=== PATIENT | female | born 1955 | race Caucasian/White ===

== ENCOUNTER 2019-09-06 14:11 | Emergency (ER) | payer SELFPAY ==
[2019-09-06 14:31] VITALS: BP 171/96; PULSE 68; RESP 16; TEMP 37; O2SAT 97
--- NOTE | 2019-09-06 15:01 | ED_ITS ---
HPI - Dental/Oral <JOVANNI Balbuena - Last Filed: 09/06/19 15:50> General Chief complaint: Dental/Oral Stated complaint: severe left jaw pain x4 days Time Seen by Provider: 09/06/19 14:41 Source: patient Mode of arrival: Ambulatory Limitations: no limitations History of Present Illness HPI Narrative: The patient is a 64-year-old female nonsmoker with history of hypertension who presents with a chief complaint of ?my teeth are rotted out of my mouth.She states that she does not have a primary care provider or dentist she states that she started having teeth issues multiple years ago, though she started having increased pain over the past week and the left side of her jaw. She denies any any fevers abnormal nausea vomiting or abnormal diarrhea. She states that she has taken Tylenol for the pain, and has not had anything else for the pain. She has not applied ice as she does not have ?access to ice packs. She has not taken any NSAIDs due to a history of gastric bypass surgery Related Data Home Medications Medication Instructions Recorded Confirmed lisinopril 20 mg PO 09/06/19 Previous Rx's Medication Instructions Recorded penicillin V potassium 500 mg PO QID #40 tab 09/06/19 tramadol 50 mg PO Q4H PRN #14 tab 09/06/19 Allergies Allergy/AdvReac Type Severity Reaction Status Date / Time No Known Drug Allergies Allergy Verified 09/06/19 14:36 Review of Systems <JOVANIN Balbuena - Last Filed: 09/06/19 15:50> Review of Systems Narrative: GENERAL: Denies chills, fatigue, malaise, fever, sweats. HEENT: See HPI RESPIRATORY: Denies dyspnea, cough, wheezing, hemoptysis, sputum. CARDIOVASCULAR: Denies chest pain, palpitations, orthopnea, edema, GASTROINTESTINAL: Denies nausea, vomiting, abdominal pain, diarrhea, constipation, melena. : Denies dysuria, frequency, incontinence, hematuria, urinary retention. MUSCULOSKELETAL: denies weakness, joint pain, or bony pain SKIN: Denies rash, skin lesions, or other NEUROLOGIC: Denies weakness, headache, numbness, change in speech, confusion, seizures, incoordination. PSYCHIATRIC: No concerning psychosocial issues. 12 point review of systems is negative except for those stated above Patient History <JOVANNI Balbuena - Last Filed: 09/06/19 15:50> Social History Smoking Status: Never smoker Smoking Status: Never smoker alcohol intake frequency: holidays/special occasions only Exam <Andie LouiseJOVANNI ramirez - Last Filed: 09/06/19 15:50> Narrative Exam Narrative: GENERAL: This is a well-nourished, well-developed patient, in no acute distress HEAD: Atraumatic. Normocephalic. No temporal or scalp tenderness. EYES: Pupils equal round and reactive. Extraocular motions intact. No scleral icterus. No injection or drainage. ENT: Nose without bleeding, purulent drainage or septal hematoma. Throat without erythema, tonsillar hypertrophy or exudate. Uvula midline. Airway patent. Poor dentition noted. Erythema with no palpable abscess upper and lower left molars. NECK: Trachea midline. No JVD or lymphadenopathy. Supple, nontender, no meningeal signs. CARDIOVASCULAR: Regular rate and rhythm RESPIRATORY: Clear to auscultation. Breath sounds equal bilaterally. No wheezes, rales, or rhonchi. GASTROINTESTINAL: Abdomen soft, non-tender, nondistended. No hepato- splenomegaly, or palpable masses. No guarding. EXTREMITIES: No clubbing, cyanosis, or edema. No joint tenderness, effusion, or edema noted. BACK: Nontender without deformity or crepitance. No flank tenderness. NEURO: AOx3. SKIN: No rash or erythema. Initial Vital Signs Initial Vital Signs: Vital Signs Temperature 98.6 F 09/06/19 14:31 Pulse Rate 68 09/06/19 14:31 Respiratory Rate 16 09/06/19 14:31 Blood Pressure 171/96 H 09/06/19 14:31 Pulse Oximetry 97 09/06/19 14:31 <Clemente Valdez DO - Last Filed: 09/06/19 16:14> Initial Vital Signs Initial Vital Signs: Vital Signs Temperature 98.6 F 09/06/19 14:31 Pulse Rate 68 09/06/19 14:31 Respiratory Rate 16 09/06/19 14:31 Blood Pressure 171/96 H 09/06/19 14:31 Pulse Oximetry 97 09/06/19 14:31 Course <Andie JOVANNI Garrido - Last Filed: 09/06/19 15:50> Vital Signs Vital signs: Vital Signs - 8 hr 09/06/19 14:31 Temperature 98.6 F Pulse Rate 68 Respiratory Rate 16 Blood Pressure 171/96 H Pulse Oximetry 97 <Clemente Valdez DO - Last Filed: 09/06/19 16:14> Vital Signs Vital signs: Vital Signs - 8 hr 09/06/19 14:31 Temperature 98.6 F Pulse Rate 68 Respiratory Rate 16 Blood Pressure 171/96 H Pulse Oximetry 97 MDM - Dental/Oral <EVAN Balbuena-BC - Last Filed: 09/06/19 15:50> Differential Diagnosis Differential diagnosis: Likely gingival abscess, dental caries, dental abscess and fracture of tooth MDM Narrative Medical decision making narrative: The patient is a 64-year-old female who presents with chief complaint of left-sided jaw pain related to ?teeth rotting out? for the past week. Exam indicates dental infection, started on penicillin. She has no signs of systemic infection, is afebrile. The patient has chronically poor dentition I discussed at length her following up with the [facility] human resources benefits assistant for primary care, suggested [facility] for dental provider. I did give her small prescription of tramadol for pain. Patient has no questions or concerns upon discharge and states understanding return precautions as well as follow-up care. Discharge Plan Departure Patient Disposition: Home Clinical Impression: Dental infection, Chronic dental pain Discharge Date/Time: 09/06/19 15:15 Instructions: Tooth Decay Prevention (Alternative Therapy), Tooth Abscess, DI for Dental Pain Activity Restrictions/Additional Instructions: Thank you for trusting us with your care today I sent 2 prescriptions to [facility]. One is an antibiotic, the others for pain. I have given you a prescription of a narcotic for pain. Be aware that this can be constipating and sedating. I encouraged taking with a stool softener, pushing fluids and fiber. Do not take and drive, operate heavy machinery, etc. Do not combine it with any other sedating substances such as alcohol. The combination of narcotics and alcohol and/or other sedatives can be lethal. Please be aware that we do not provide refills of controlled substances in the emergency department. Please follow up with her primary care provider. Please follow-up with primary care provider as well as a dental provider. I have given you contact information [facility] human resources benefits assistant. Prescriptions: New penicillin V potassium 500 mg tablet 500 mg PO QID Qty: 40 RF: 0 tramadol 50 mg tablet 50 mg PO Q4H PRN (Reason: pain) Qty: 14 RF: 0 No Action lisinopril 10 mg tablet 20 mg PO RF: 0 Referrals: [facility] [Outside] <Clemente Valdez, DO - Last Filed: 09/06/19 16:14> [facility] Dr Valdez Co-Sign Statement: I was available for consultation during this patient's emergency department visit. This chart is signed by myself for administrative purposes only. I did not have direct contact with this patient during this visit. They were seen independently by the APC.
== END 2019-09-06 15:15 | disposition home or self-care (01) ==
PROVIDERS: Emergency Provider Nurse Practitioner Family
DX: K04.7 Periapical abscess without sinus (principal); K08.89 Other specified disorders of teeth and supporting structures
CPT/HCPCS: 99281